=== PATIENT | male | born 1945 ===

== ENCOUNTER 2022-09-20 01:24 | Inpatient (IN) | payer OTHER ==
[~2022-09-20] VITALS: Ht 172.7 cm; Wt 78.2 kg
[2022-09-20 01:51] LABS: Hematocrit 28.7 % (37.0-53.0); Hemoglobin 9.5 g/dL (13.5-17.5); International Normalized Ratio 1.41; Mean Corpuscular HGB 29.4 pg (26.0-34.0); Mean Corpuscular HGB Conc 33.1 g/dL (31.5-36.5); Mean Corpuscular Volume 89 fL (80-100); NRBC ABSOLUTE 0.13 K/mm3 (0.00-0.02); NRBC Auto 0.7 /100 WBC (0.0-0.2); Platelet Count 104 K/mm3 (150-400); Prothrombin Time Results 14.5 Sec (9.7-11.5); RDW Coefficient Variation 16.6 % (11.7-14.2); Red Blood Cell Count 3.23 M/mm3 (4.30-5.90); White Blood Cell Count 19.23 K/mm3 (4.00-11.30)
[2022-09-20 01:54] LABS: Mean Platelet Volume 13.5 fL (9.1-12.4)
[2022-09-20 02:29] LABS: BAND PERCENT MAN 2 % (0-8); BASOPHILS PERCENT MAN 0 % (0-2); EOSINOPHILS PERCENT MAN 0 % (0-6); LYMPHOCYTES ABSOLUTE MAN 0.76 K/mm3 (0.84-5.20); LYMPHOCYTES PERCENT MAN 4 % (21-46); METAMYELOCYTE ABSOLUTE MAN 0.57 K/mm3 (0.00-0.00); METAMYELOCYTE PERCENT MAN 3 % (0-0); MONOCYTES ABSOLUTE MAN 0.38 K/mm3 (0.16-1.47); MONOCYTES PERCENT MAN 2 % (4-13); MYELOCYTE ABSOLUTE MAN 0.38 K/mm3 (0.00-0.00); MYELOCYTE PERCENT MAN 2 % (0-0); NEUTROPHILS ABSOLUTE MAN 17.11 K/mm3 (1.96-9.15); SEG NEUTROPHILS PERCENT MAN 87 % (41-73); TOTAL CELLS COUNTED 100
[2022-09-20 02:49] LABS: PCO2 Arterial 27.1 mmHg (35-45)
[2022-09-20 02:51] LABS: pH Blood Arterial 6.93 (7.35-7.45)
[2022-09-20 03:14] LABS: Ethanol (Alcohol), Blood, Med <3 mg/dL
[2022-09-20 04:06] LABS: Alanine Aminotransfer (ALT/SGP 44 U/L (12-78); Albumin, Blood 2.7 g/dL (3.4-5.0); Albumin/Globulin Ratio 0.8 (0.8-1.8); Alk Phos 82 U/L (50-136); Anion Gap 17 mmol/L (6-16); Aspartate Aminotrans (AST/SGOT 131 U/L (12-37); Bilirubin, Total 0.6 mg/dL (0.1-1.0); Blood Urea Nitrogen 179 mg/dL (8-24); Bun/Creatinine Ratio 14.6 (12.0-20.0); CO2, Blood 8 mmol/L (21-32); CPK Creatine Kinase 2646 U/L (39-308); Calcium, Blood 5.4 mg/dL (8.5-10.1); Chloride, Blood 108 mmol/L (98-108); Globulin, Blood 3.3 g/dL (2.2-4.0); Glomerular Filtration Rate 4 (60-); Glucose, Blood 150 mg/dL (70-99); Potassium, Blood 5.8 mmol/L (3.5-5.5); Sodium, Blood 133 mmol/L (136-145)
[2022-09-20 06:45] LABS: Source, Urine Clean Catch
[2022-09-20 06:53] LABS: Creatine Kinase MB 57.9 ng/mL (0.0-3.6); Creatine Kinase MB Index 2.2 (0.0-4.0)
[2022-09-20 07:15] LABS: Appearance, Urine Hazy (Clear); Bilirubin, Urine Neg (Neg); Blood, Urine 5+ (Neg); Color, Urine Amber (P-Yellow); Glucose Qualitative, Urine Neg (Neg); Ketones, Urine Neg (Neg); Leukocyte Esterase, Urine Neg (Neg); Nitrite, Urine Neg (Neg); Protein, Urine 4+ (Neg); Urobilinogen, Urine NORM (Normal)
[2022-09-20 07:50] LABS: Red Blood Cells, Urine 50-100 /hpf (0-2)
[2022-09-20 07:51] LABS: Bacteria Many /hpf; Squamous Epithelial Cells Rare /hpf (Few)
[2022-09-20 07:52] LABS: Transitional Epithelial Cells Rare /hpf (0-Rare)
[2022-09-20 08:07] LABS: Base Excess Venous -25.8 mmol/L; PCO2 Venous 34.4 mmHg (38-42); pH Blood Venous 6.91 (7.34-7.37)
--- NOTE | 2022-09-20 09:30 | NUR ---
Patient arrived from ER and was 4 person slide transfer. He was on oxymizer 10L and sats 88-92%. He has audible coarse breathing. Dr Knight by to see patient, and nephrology saw in ER with new orders. Dr Millan consulted for center punch operator and possible Dialysis cath. Patient shortly after placed on BIPAP 10/5 75% and sats >90%. Patient arrived with Chilel draining to gravity and scant amount yellow urine. Patient has reddened yeast around belly button and buttock and groun. Cleaned grzegorz area and rectal area.
[2022-09-20 09:50] LABS: Percent Saturation 42.6 % (20.0-50.0)
[2022-09-20 10:11] LABS: Calcium, Blood 5.2 mg/dL (8.5-10.1); Phosphorus, Blood 17.3 mg/dL (2.5-4.9); Potassium, Blood 5.6 mmol/L (3.5-5.5)
[2022-09-20 11:58] LABS: Albumin, Blood 2.3 g/dL (3.4-5.0); Anion Gap 15 mmol/L (6-16); Blood Urea Nitrogen 223 mg/dL (8-24); Bun/Creatinine Ratio 19.4 (12.0-20.0); CO2, Blood 10 mmol/L (21-32); Calcium, Blood 5.2 mg/dL (8.5-10.1); Chloride, Blood 113 mmol/L (98-108); Glomerular Filtration Rate 4 (60-); Glucose, Blood 176 mg/dL (70-99); Phosphorus, Blood 14.8 mg/dL (2.5-4.9); Potassium, Blood 5.4 mmol/L (3.5-5.5); Sodium, Blood 138 mmol/L (136-145)
--- NOTE | 2022-09-20 12:00 | NUR ---
Dr Millan met with both brothers and had conversation about code status change and they requested and consent for trialysis cath for dialysis and the y argreed to make full code and see how he does short term. Patient [id number] and sedated around 1120, 8.0 ET and 26cm at teeth with vent settings of 17/500/50/5 and sats >90%. dr Millan placed trialysis cath in right groin for dialysis today. Patient remains on bicarb at 150ml/hr and Propofol at 45 mcg/kg/min and is mostly sedated and responds to pain.
[2022-09-20 13:06] LABS: PCO2 Arterial 30.4 mmHg (35-45); PO2 Arterial 95.5 mmHg (80-100)
[2022-09-20 13:08] LABS: pH Blood Arterial 7.05 (7.35-7.45)
--- NOTE | 2022-09-20 14:00 | NUR ---
Patient is starting dialysis. He has been doing well since intubation and sedation. No changes to vent settings since last note, 17/500/50/5 sats >90%. Pressures stating WNL and MAP>65. Family has gone for the day.
--- NOTE | 2022-09-20 16:02 | NUR ---
No significant changes with patient. He contionues with dialysis currently. Will assess after dialysis done. VSS
--- NOTE | 2022-09-20 17:44 | NUR ---
Pt is currently intubated after arriving in the ED with altered mental status, poor coordination of body movements. Pt unable to speak or answer questions in the ED, and was then intubated in ICU when family changed code status from DNR to FULL CODE, and plan for dialysis for acute renal failure. Pt has a son, but pt's 2 brothers are stepping in for him, as he is unable to leave his apartment due to mental health issues at this time. Met with the brothers, and we discussed pt's lack of self care related to years of diabetes, but they want to be sure they aren't making "rash" decisions. Palliative to meet with brothers again tomorrow to review pt's current status.
--- NOTE | 2022-09-20 18:00 | NUR ---
Dialysis done at 1700 and pulled 1L off. Dr montoya by and spoke with dialysis nurse and will rerun tomorrow. He remains intubated and sedated with vent settings of 17/500/40/5 and sats 98%. Chilel had 30 ml out yellow urine even post 80 mg lasix this am. OG in place and had 150 ml dark out put. Trialysis cath right groin C/D/I. 20 ga IV in right lower FA SL./ Pulled IV in RAC. He has had bilateral soft wrist restraints since 1130.
[2022-09-21 04:05] LABS: BASOPHILS PERCENT AUTO 0 % (0-2); EOSINOPHILS PERCENT AUTO 0 % (0-6); Hematocrit 19.7 % (37.0-53.0); Hemoglobin 6.7 g/dL (13.5-17.5); IMMATURE GRAN ABSOLUTE AUTO 0.34 K/mm3 (0.00-0.10); IMMATURE GRAN PERCENT AUTO 5 % (0-1); LYMPHOCYTES ABSOLUTE AUTO 0.08 K/mm3 (0.84-5.20); LYMPHOCYTES PERCENT AUTO 1 % (21-46); MONOCYTES ABSOLUTE AUTO 0.15 K/mm3 (0.16-1.47); MONOCYTES PERCENT AUTO 2 % (4-13); Mean Corpuscular HGB 28.8 pg (26.0-34.0); Mean Corpuscular Volume 85 fL (80-100); Mean Platelet Volume 11.5 fL (9.1-12.4); NEUTROPHILS ABSOLUTE AUTO 6.46 K/mm3 (1.96-9.15); NEUTROPHILS PERCENT AUTO 92 % (41-73); RDW Coefficient Variation 15.9 % (11.7-14.2); RDW Standard Deviation 48.9 fL (35.1-46.3); Red Blood Cell Count 2.33 M/mm3 (4.30-5.90); White Blood Cell Count 7.03 K/mm3 (4.00-11.30)
[2022-09-21 05:02] LABS: Magnesium, Blood 1.9 mg/dL (1.6-2.4)
[2022-09-21 05:19] LABS: Platelet Count 39 K/mm3 (150-400)
[2022-09-21 05:42] LABS: Anion Gap 19 mmol/L (6-16); Blood Urea Nitrogen 116 mg/dL (8-24); Bun/Creatinine Ratio 13.7 (12.0-20.0); CO2, Blood 17 mmol/L (21-32); Calcium, Blood 5.5 mg/dL (8.5-10.1); Chloride, Blood 104 mmol/L (98-108); Creatinine, Blood 8.49 mg/dL (0.60-1.20); Glomerular Filtration Rate 6 (60-); Glucose, Blood 102 mg/dL (70-99); Phosphorus, Blood 9.3 mg/dL (2.5-4.9); Potassium, Blood 3.8 mmol/L (3.5-5.5); Sodium, Blood 140 mmol/L (136-145)
--- NOTE | 2022-09-21 06:39 | NUR ---
Shift summary: Neuro: Pt is sedated with propofol at 40mcg/kg/min and isn't compliant with ventilator when sedation decreased at first. Pt Sofay spontanously. Cardiac: Afib. HR varied from low 100's at the beginning of the night and is now decreased to mid-70s. Edema to BLE 2+. Resp: Lung sounds - crackles. Intubated - size 8.0 ETT, 26 at the [facility]. AC/VC 17/500/5/30% GI/: OGT to LIWS with 100ml out of blood tinged/bile colored liquid. Chilel draining to gravity with 0 ml urine output. 1 dark black BM overnight. IV - Right fem trialysis cath. 2 right FA IV's. D5 infusing at 50ml/hr. Blood glucose checks Q6 hours Plan for dialysis today
--- NOTE | 2022-09-21 07:10 | NUR ---
Received report from Breanne PHIPPS. Patient is intubated and sedated with 8.0 ET and 26cm at teeth with vent settings AC/VC 17/500/30/5 and sats >90%. He has Trialysis cath in right groin and will have dialysis today with PRBC. He has x2 20ga lower RFA infusinf D% at 50 ml/hr, Propofol at 40 mcg/kg/min. he has 16fr temp cabrera draining to gravity scat amounts of yellow urine. He responds to painful stimuli. He has yeast areas that cream has been applied at grzegorz rectal area and belly button. He has bilateral soft writ restraints. Oral care and repositioned this am already.
--- NOTE | 2022-09-21 09:30 | NUR ---
Patient started dialysis around 0900. NO changes to vent setting or gtt's. He is getting 1 PRBC and albumin during dialysis for 6.7 hgb. We are also going to start tube feeds and stop D5 shortly after. AM meds given. Family called for update. He remains in soft bilateral wrist restraints.He was braying down in the 40's and spoke with Dr Millan, dialysis changed settings and he back in kaylynn 70-80's changing to SR to a-vfib and back.
[2022-09-21 10:11] LABS: HBSAG SCREEN Negative (Negative); HCV ANTIBODY <0.1 (0.0-0.9)
--- NOTE | 2022-09-21 11:45 | NUR ---
Patient doing dialysis and tolerating well now that they have reduce fluid pull. Ordered PRBC and Albumin. No changes to vent or gtt's
--- NOTE | 2022-09-21 13:55 | NUR ---
Patient received bath and linen change. Talked with Dr Millan about blood in urinary cath and around meatus and have stopped heparin. He continues to have liquied maroon stool . Starting on Vital High Protien at 25 with goal of 45 ml/hr and 3o ml water flushes Q4. Dialysis went well and had 1500 ml off.
--- NOTE | 2022-09-21 16:00 | NUR ---
No significant changes with patient. He remains intubated and sedated. No changes to vent or gtt's. He has blood tinged thick white ET secretions. He withdrawls from painful stimuli. Patient tolerating TF and flushes. repostioned and boosted in bed
[2022-09-21 16:12] LABS: Hematocrit 22.4 % (37.0-53.0); Hemoglobin 7.9 g/dL (13.5-17.5)
--- NOTE | 2022-09-21 18:07 | NUR ---
Patient remains intubated and sedated with 8.0 ET and 26cm at teeth and settings of 17/500/3-0/5 and sats >90%. He has 16Fr cabrera draining to gravity morgan red urine 100 ml for shift. He had dialysis today with minimal complications and had 1.5L removed. He has x2 20ga IV's in RFA and Trialysis cath right groin, and infusing Propofol at 40 mcg/kg/min, NS TKO. We started Vital High Protein TF at 25ml/hr and 30 ml water flushes Q4. He continues to have maroon liquid stool and and they stopped heparin this shift. VSS
--- NOTE | 2022-09-22 02:20 | NUR ---
TF INCREASED TO 35ML/HR
[2022-09-22 03:58] LABS: PCO2 Arterial 30.1 mmHg (35-45); PO2 Arterial 65.3 mmHg (80-100); pH Blood Arterial 7.36 (7.35-7.45)
[2022-09-22 04:03] LABS: BASOPHILS PERCENT AUTO 0 % (0-2); EOSINOPHILS PERCENT AUTO 0 % (0-6); Hematocrit 21.1 % (37.0-53.0); Hemoglobin 7.4 g/dL (13.5-17.5); IMMATURE GRAN ABSOLUTE AUTO 0.15 K/mm3 (0.00-0.10); IMMATURE GRAN PERCENT AUTO 3 % (0-1); LYMPHOCYTES ABSOLUTE AUTO 0.08 K/mm3 (0.84-5.20); LYMPHOCYTES PERCENT AUTO 2 % (21-46); MONOCYTES ABSOLUTE AUTO 0.07 K/mm3 (0.16-1.47); MONOCYTES PERCENT AUTO 1 % (4-13); Mean Corpuscular HGB 29.7 pg (26.0-34.0); Mean Corpuscular HGB Conc 35.1 g/dL (31.5-36.5); Mean Corpuscular Volume 85 fL (80-100); Mean Platelet Volume 11.5 fL (9.1-12.4); NEUTROPHILS ABSOLUTE AUTO 5.11 K/mm3 (1.96-9.15); NEUTROPHILS PERCENT AUTO 94 % (41-73); RDW Coefficient Variation 15.9 % (11.7-14.2); RDW Standard Deviation 49.6 fL (35.1-46.3); Red Blood Cell Count 2.49 M/mm3 (4.30-5.90); White Blood Cell Count 5.41 K/mm3 (4.00-11.30)
[2022-09-22 04:21] LABS: Magnesium, Blood 1.6 mg/dL (1.6-2.4)
[2022-09-22 04:43] LABS: Platelet Count 29 K/mm3 (150-400)
[2022-09-22 04:45] LABS: Albumin, Blood 2.2 g/dL (3.4-5.0); Anion Gap 14 mmol/L (6-16); Blood Urea Nitrogen 65 mg/dL (8-24); Bun/Creatinine Ratio 11.8 (12.0-20.0); CO2, Blood 18 mmol/L (21-32); Calcium, Blood 6.4 mg/dL (8.5-10.1); Chloride, Blood 100 mmol/L (98-108); Creatinine, Blood 5.53 mg/dL (0.60-1.20); Glomerular Filtration Rate 10 (60-); Glucose, Blood 193 mg/dL (70-99); Potassium, Blood 3.1 mmol/L (3.5-5.5); Sodium, Blood 132 mmol/L (136-145)
[2022-09-22 04:56] LABS: Phosphorus, Blood 4.8 mg/dL (2.5-4.9)
--- NOTE | 2022-09-22 06:10 | NUR ---
SHIFT SUMMARY: Neuro: Pt is sedated with propofol at 50mcg/kg/min and isn't compliant with ventilator when sedation is decreased. Pt Sofya spontanously, moves head side to side. Cardiac: Afib. HR varied from low 70-90's. BLE edema 2-3+. Resp: Lung sounds - crackles. Intubated - size 8.0 ETT, 26 at the gums. AC/VC 17/500/5/40% Bright red secretions from inline suction. GI/: OGT TF currently at 35ml/hr. Increase at 10am for a goal of 45ml/hr. Chilel draining to gravity with 0 ml urine output. 1 dark loose black BM at beginning of shift IV - Right fem trialysis cath. 2 right FA IV's. Blood glucose checks [id number] Plan for dialysis again today
--- NOTE | 2022-09-22 08:00 | NUR ---
Assumed care of pt at 0700. Sedated with propofol at 50 mcg/kg/min. Cough and gag present. 8.0 cm ETT at expected location of 26 cm at gums. Vent settings ACVC 17/500/5/40%. SpO2 90% or greater. HR 80s. BP stable.
--- NOTE | 2022-09-22 13:59 | NUR ---
Pt's brothers Jim and Franco have been in to see pt. Update provided. Dialysis treatment complete.
--- NOTE | 2022-09-22 18:09 | NUR ---
SUMMARY Neuro: Sedated with propofol at 50 mcg/kg/min. Becomes agitated, coughs more, does not follow commands with absence of sedation. Cough and gag intact. Musc: Total care for all ADLs. Repositioned Q2H. Oral care Q4H. In bilat wrist restraints to prevent self extubation. Cardiac: Afib, rate 115-125 following dialysis. BP stable. GI: VHP at goal rate. No BM this shift. Seems to be tolerating TF well. : Good urine output from cabrera. Skin: Unchanged from initial assessment.
[2022-09-22 21:50] LABS: Source, Urine Foley catheter
[2022-09-22 22:14] LABS: Appearance, Urine Hazy (Clear); Bilirubin, Urine Neg (Neg); Blood, Urine 5+ (Neg); Color, Urine Brown (P-Yellow); Glucose Qualitative, Urine 1+ (Neg); Ketones, Urine 1+ (Neg); Leukocyte Esterase, Urine 2+ (Neg); Nitrite, Urine Pos (Neg); Protein, Urine 4+ (Neg); Specific Gravity, Urine 1.015 (1.003-1.022); Urobilinogen, Urine NORM (Normal)
[2022-09-22 22:39] LABS: Bacteria Many /hpf; Red Blood Cells, Urine TNTC /hpf (0-2); Squamous Epithelial Cells Few /hpf (Few)
[2022-09-23 04:24] LABS: Hematocrit 20.7 % (37.0-53.0); Hemoglobin 7.2 g/dL (13.5-17.5); Mean Corpuscular HGB 29.1 pg (26.0-34.0); Mean Corpuscular HGB Conc 34.8 g/dL (31.5-36.5); Mean Corpuscular Volume 84 fL (80-100); Mean Platelet Volume 9.9 fL (9.1-12.4); RDW Coefficient Variation 15.7 % (11.7-14.2); RDW Standard Deviation 48.1 fL (35.1-46.3); Red Blood Cell Count 2.47 M/mm3 (4.30-5.90); White Blood Cell Count 4.05 K/mm3 (4.00-11.30)
[2022-09-23 04:37] LABS: Platelet Count 23 K/mm3 (150-400)
[2022-09-23 04:40] LABS: PCO2 Arterial 39.7 mmHg (35-45); pH Blood Arterial 7.47 (7.35-7.45)
[2022-09-23 04:41] LABS: Albumin, Blood 2.4 g/dL (3.4-5.0); Bilirubin, Total 0.6 mg/dL (0.1-1.0); Bun/Creatinine Ratio 11.4 (12.0-20.0); Calcium, Blood 6.9 mg/dL (8.5-10.1); Creatinine, Blood 3.5 mg/dL (0.60-1.20); Globulin, Blood 2.5 g/dL (2.2-4.0); Magnesium, Blood 1.6 mg/dL (1.6-2.4); Phosphorus, Blood 1.9 mg/dL (2.5-4.9); Total Protein, Blood 4.9 g/dL (6.4-8.2)
--- NOTE | 2022-09-23 05:04 | NUR ---
SPOKE WITH DR. BENITES ABOUT LAB RESULTS THIS MORNING. K-3.0, CA-6.9, PHOS-1.9, MAG 1.6. Cr 3.50 ORDERS RECEIVED TO REPLACE K AND CA- SEE EMAR. NO PLANS FOR DIALYSIS TODAY.
[2022-09-23 05:39] LABS: BAND PERCENT MAN 7 % (0-8); BASOPHILS PERCENT MAN 0 % (0-2); EOSINOPHILS PERCENT MAN 0 % (0-6); METAMYELOCYTE ABSOLUTE MAN 0.08 K/mm3 (0.00-0.00); METAMYELOCYTE PERCENT MAN 2 % (0-0); MONOCYTES PERCENT MAN 0 % (4-13); NEUTROPHILS ABSOLUTE MAN 3.96 K/mm3 (1.96-9.15); SEG NEUTROPHILS PERCENT MAN 91 % (41-73); TOTAL CELLS COUNTED 100
--- NOTE | 2022-09-23 05:43 | NUR ---
Shift summary: Neuro: Pt is sedated with propofol at 50mcg/kg/min. Paused sedation at beginning of the shift and he was able to open his eyes to command, but never followed any other commands. Cardiac: Afib. HR low 100's. BP soft but MAP >65. BLE edema 2-3+. T-max 100.1 Resp: Lung sounds - crackles. Intubated - size 8.0 ETT, 26 at the [facility]. AC/VC 17/500/5/45% GI/: OGT TF currently at 45ml/hr with 2ml residuals. Chilel draining to gravity with 60 ml urine output at the beginning of shift, 0ml output since then. 2 loose black BMs at beginning of shift IV - Right fem trialysis cath. 1 right FA IV. Blood glucose checks [id number] No plan for dialysis today with lab results improving
--- NOTE | 2022-09-23 07:05 | NUR ---
Assumed care of pt at 0700. Report received from Breanne PHIPPS. Pt sedated with 40 mcg/kg/min propofol. Cough, gag, corneal reflexes intact. Withdraws from pain. 8.0 cm ETT at expected location of 26 cm at gums. Vent settings ACVC 15/500/5/40%. SpO2 100%. EtCO2 27. IV calcium and potassium infusing. Dr Morel in to see patient. Plan to recheck electrolytes this afternoon.
[2022-09-23 15:51] LABS: Bun/Creatinine Ratio 11.7 (12.0-20.0); Calcium, Blood 7.4 mg/dL (8.5-10.1); Creatinine, Blood 3.94 mg/dL (0.60-1.20); Potassium, Blood 3.7 mmol/L (3.5-5.5)
--- NOTE | 2022-09-23 16:19 | NUR ---
CARE SUMMARY Neuro: Pt has been off sedation since 1029. Cough, gag, and corneal reflexes present. Pt had positive babinski. Pupils equal, responsive to light. No movement noted to arms. Pt chews on suction swab with oral care. Musc: total care for all ADLs. Resp: Vent is on PS 10/5 and 45% FiO2. RR 40, Tidal volumes 350-400. Dr Brownlee aware. Scant secretions through ETT. Cardiac: Cardizem drip started per Dr Brownlee. Currently 10 mg/hr. Pt responsed well to prescribed bolus before starting drip. GI: TF and flush per orders. 2 liquid brown BMs this shift. Skin: Photographs obtained of coccyx, as there were none in chart Psych: Updates given to brothers Jim and Franco.
--- NOTE | 2022-09-23 16:37 | NUR ---
Assumed care for pt at 1600 from Kristan PHIPPS. Pt on Diltiazem gtt @ 10 mg/hr, remains off Propofol gtt for sedatiomn vacation. Remains on Spontaneous Pressure Support seeting for the vent. He did not receive dialysis today. Trialysis catheter in R groin and peripheral IV right wrist.
[2022-09-24 03:51] LABS: Hemoglobin 7.7 g/dL (13.5-17.5); Mean Corpuscular HGB 28.6 pg (26.0-34.0); Mean Corpuscular HGB Conc 33.5 g/dL (31.5-36.5); Mean Corpuscular Volume 86 fL (80-100); Mean Platelet Volume 12.6 fL (9.1-12.4); RDW Coefficient Variation 15.7 % (11.7-14.2); RDW Standard Deviation 48.6 fL (35.1-46.3); Red Blood Cell Count 2.69 M/mm3 (4.30-5.90); White Blood Cell Count 6.58 K/mm3 (4.00-11.30)
[2022-09-24 04:10] LABS: Albumin, Blood 2.3 g/dL (3.4-5.0); Anion Gap 13 mmol/L (6-16); Blood Urea Nitrogen 58 mg/dL (8-24); Bun/Creatinine Ratio 13.4 (12.0-20.0); CO2, Blood 24 mmol/L (21-32); Calcium, Blood 6.9 mg/dL (8.5-10.1); Chloride, Blood 100 mmol/L (98-108); Creatinine, Blood 4.33 mg/dL (0.60-1.20); Glomerular Filtration Rate 14 (60-); Glucose, Blood 207 mg/dL (70-99); Magnesium, Blood 1.6 mg/dL (1.6-2.4); Phosphorus, Blood 2.7 mg/dL (2.5-4.9); Potassium, Blood 4.2 mmol/L (3.5-5.5); Sodium, Blood 137 mmol/L (136-145)
[2022-09-24 04:16] LABS: Platelet Count 28 K/mm3 (150-400)
[2022-09-24 05:53] LABS: BAND PERCENT MAN 12 % (0-8); BASOPHILS PERCENT MAN 0 % (0-2); EOSINOPHILS PERCENT MAN 0 % (0-6); LYMPHOCYTES ABSOLUTE MAN 0.06 K/mm3 (0.84-5.20); LYMPHOCYTES PERCENT MAN 1 % (21-46); MONOCYTES ABSOLUTE MAN 0.06 K/mm3 (0.16-1.47); MONOCYTES PERCENT MAN 1 % (4-13); NEUTROPHILS ABSOLUTE MAN 6.44 K/mm3 (1.96-9.15); SEG NEUTROPHILS PERCENT MAN 86 % (41-73); TOTAL CELLS COUNTED 100
--- NOTE | 2022-09-24 06:12 | NUR ---
PATIENT OPENING EYES TO VOICE BUT NOT FOLLOWING COMMANDS. MOVES EXTREMITIES X4. PROPOFOL REMAINS OFF BUT FREQUENT PRN FENTANYL DOSES GIVEN TO KEEP PATIENT COMFORTABLE. DILTIAZEM TURNED OFF OVERNIGHT, PATIENT REMAINS IN AFIB. BP STABLE. VENT PS 12/8 50%. OGT IN PLACE WITH CONTINUOUS TUBE FEEDS. MADRIGAL IN PLACE IN PATENT, ONLY 10 ML URINE OUTPUT.
--- NOTE | 2022-09-24 09:21 | NUR ---
ASSUMED PT CARE AT 0715 PT INTUBATED. OFF SEDATION WITH NO PURPOSEFUL MOVEMENTS OR ABILITY TO RESPOND/ FOLLOW COMMANDS. DOESN'T OPEN EYES TO NOXIOUS STIMULI. DOES HAVE A GAG/COUGH REFLEX; PULLS FOOT AWAY WHEN PLANTAR REFLEX IS STIMULIATED. VENT SETTINGS SPONTANEOUS PS 12/8; 45% FIO2 WITH RR 30'S WITH OXYGEN SATURATIONS 98% AND ETCO2 24. PT HAS A TRIALYSIS CATH TO RIGHT FEMORAL SITE; CARDIZEM GTT INTIIATED D/T AFIB WITH HR 130-140'S AT 5MG/HR. SODIUM BICARB STARTED WITH RATE AT 150ML/HR. VHP AT GOAL OF 45ML/HR. TEMP MADRIGAL CATHETER IN PLACE WITH MINIMAL TO NO URINE OUTPUT; DARK TEA COLORED URINE NOTED TO BAG. PT TURNED OFF BOTTOM IT APPEARS THERE IS A DEEP TISSUE INJURY NOTED TO COCCYX AREA. FAMILY AT BEDSIDE WITH DR. YUSUF DISCUSSING PLAN OF CARE. PT IS SCHEDULED FOR DIALYSIS TODAY. WILL CONTINUE TO MONITOR.
--- NOTE | 2022-09-24 17:13 | NUR ---
END OF SHIFT SUMMARY PT REMAINS INTUBATED AND OFF SEDATION. WILL OPEN EYES TO VERBAL STIMULI; HOWEVER, WILL NOT TRACK OR FOLLOW COMMANDS. BILATERAL SOFT WRIST RESTRAINTS REAPPLIED AT 1600 D/T PT BECOMING RESTLESS AND THRASHING IN BED. ABLE TO MOVE EXTREMITIES, BUT DOES NOT APPEAR PURPOSEFUL. VENT SETTINGS REMAIN SPONTANEOUS WITH PS 12/8; FIO2 45%, RR 30'S. SPO2 >90%. PT REMAINS AFIB WITH RATE >100; CARDIZEM GTT REMAINS AT 10MG/HR. CALLED DR. YUSUF REGARDING CHANGING TO LOPRESSOR D/T ELEVATED BP WELL. NEW ORDERS FOR LOPRESSOR 25MG BID. ALSO REQUESTED PT'S MADRIGAL CATHETER TO BE D/C'D PT HAS BEEN ANURIC ALL SHIFT; NEW ORDERS OBTAINED TO D/C MADRIGAL. BICARB GTT CONTINUES AT 75ML/HR. NS TKO. PT RECEIVED DIALYSIS TODAY. FAMILY AT BEDSIDE MOST OF SHIFT AND HAVE BEEN GIVEN UPDATES. WILL CONTINUE TO MONITOR UNTIL REPORT IS HANDED OVER TO ONCOMING RN.
--- NOTE | 2022-09-24 19:00 | NUR ---
ASSUMED CARE ASSUMED CARE OF PATIENT AT 1900. PATIENT LYING IN BED INTUBATED ON SPONTANEOUS 08/18 FIO2 45% WITH SPO2 MID TO HIGH 90'S. PATIENT EXHIBITS OCCASSIONAL SIDE TO SIDE MOVEMENT OF HEAD WITHOUT OPENING EYES. UPON VERBAL AND PHYSICAL STIMULATION, PATIENT OPENS LEFT EYE, BUT DOES NOT OPEN RIGHT EYE. THE RIGHT PUPIL IS NOT RESPONSIVE TO LIGHT, WHEREAS THE LEFT IS SLUGGISH. BOTH PUPILS ARE EQUAL WITHOUT STIMULATION. PATIENT DOES NOT FOLLOW ANY COMMANDS, BUT MOVES ALL FOUR EXTREMITIES INDEPENDENTLY. NOTICEABLE STIFFNESS TO THE RIGHT SIDE WHEN TURNING PATIENT. NO SEDATION INF AT THIS TIME. BICARB GTT @ 75ML/HR AND NS TKO INF. TRIALYSIS CATH TO RIGHT FEMORAL AND 20G PIV TO RT WRIST IN PLACE. ATTENDS IN PLACE. VHP INF @ GR 45ML/HR VIA OGT. REPORT RECEIVED FROM DESIRE [place].
--- NOTE | 2022-09-24 22:25 | NUR ---
FAMILY VISIT FAMILY-VERÓNICA AND JESS-CAME TO BEDSIDE TO VISIT PATIENT BRIEFLY AND REQUEST UPDATE. EXPLAINED THAT THERE HAS NOT BEEN MUCH CHANGE ACCORDING TO REPORT RECEIVED FROM DAYSHIFT NURSE OTHER THAN PATIENT ATTEMPTING TO LIFT HEAD AND TURN HEAD TO VERBAL STIMULI. ALL QUESTIONS ANSWERED AND UNIT PHONE NUMBER PROVIDED. EDUCATED FAMILY ON VISITING HOURS.
[2022-09-25 04:05] LABS: BASOPHILS ABSOLUTE AUTO 0.01 K/mm3 (0.00-0.23); BASOPHILS PERCENT AUTO 0 % (0-2); EOSINOPHILS PERCENT AUTO 0 % (0-6); Hematocrit 21.4 % (37.0-53.0); Hemoglobin 7.1 g/dL (13.5-17.5); IMMATURE GRAN PERCENT AUTO 1 % (0-1); LYMPHOCYTES ABSOLUTE AUTO 0.22 K/mm3 (0.84-5.20); LYMPHOCYTES PERCENT AUTO 3 % (21-46); MONOCYTES PERCENT AUTO 4 % (4-13); Mean Corpuscular HGB 28.3 pg (26.0-34.0); Mean Corpuscular HGB Conc 33.2 g/dL (31.5-36.5); Mean Corpuscular Volume 85 fL (80-100); NEUTROPHILS ABSOLUTE AUTO 7.07 K/mm3 (1.96-9.15); NEUTROPHILS PERCENT AUTO 92 % (41-73); RDW Coefficient Variation 15.4 % (11.7-14.2); RDW Standard Deviation 47.4 fL (35.1-46.3); Red Blood Cell Count 2.51 M/mm3 (4.30-5.90)
[2022-09-25 04:30] LABS: Platelet Count 42 K/mm3 (150-400)
[2022-09-25 04:49] LABS: Albumin, Blood 2.1 g/dL (3.4-5.0); Anion Gap 10 mmol/L (6-16); Blood Urea Nitrogen 59 mg/dL (8-24); Bun/Creatinine Ratio 17.2 (12.0-20.0); CO2, Blood 31 mmol/L (21-32); Chloride, Blood 93 mmol/L (98-108); Creatinine, Blood 3.43 mg/dL (0.60-1.20); Glomerular Filtration Rate 18 (60-); Glucose, Blood 199 mg/dL (70-99); Lactate Dehydrogenase (Ld),Bld 498 U/L (100-240); Magnesium, Blood 1.6 mg/dL (1.6-2.4); Phosphorus, Blood 2.8 mg/dL (2.5-4.9); Potassium, Blood 4.1 mmol/L (3.5-5.5); Sodium, Blood 134 mmol/L (136-145)
--- NOTE | 2022-09-25 05:27 | NUR ---
SHIFT SUMMARY PATIENT REMAINED INTUBATED WITHOUT SEDATION T/O SHIFT. BICARB @ 75ML/HR AND NS TKO INF. TF REMAINS AT GR 45ML/HR. SCANT URINE OUTPUT IN ATTENDS, LARGE LIQUID BM THIS SHIFT-NO STOOL SOFTENERS GIVEN THIS SHIFT. BP REMAINS ELEVATED WITH SBP 130'S-160'S, MAPS 90'S-110'S. VENT SETTINGS REMAIN ON SPONTANEOUS 12/8 FIO2 45% WITH SPO2 HIGH 90'S. PUPILS ARE EQUAL AND REACTIVE BILATERALLY TO LIGHT. PATIENT TENSES WITH CARES AND FIGHTS ORAL CARE/ATTENDS CHANGE. CRITICAL LAB PLT 42-IMPROVING FROM YESTERDAY. NO OTHER CHANGES THIS SHIFT.
--- NOTE | 2022-09-25 09:18 | NUR ---
CARE OF PT ASSUMED AT 0700. PT ON MECH VENT WITHOUT SEDATION. SPONT 12/8 45%. PT OCCASIONALLY OPENS EYES SPONT, DOES NOT TRACK, SHAKES HEAD BACK AND FORTH FREQUENTLY AND WITH ANY CARE. DOES NOT FOLLOW COMMANDS. TUBE FEEDS AT GOAL. BICARB GTT DC'D THIS AM BY NOCT RN PER NEPHROLOGY. HD SCHEDULED FOR TOMORROW.
--- NOTE | 2022-09-25 17:52 | NUR ---
NO CHANGES IN NEURO STATUS THIS SHIFT. 2 BROTHERS STOPPED BY TO SEE PT TODAY. PT INCONTINENT OF 5 LIQUID BM'S THIS SHIFT, RECTAL TUBE PLACED, SCROTUM RED AND EXCORIATED FROM STOOL. MEPILEX CHANGED TO COCCYX; AREA REMAINS PURPLE. FIO2 DOWN TO 35%, PT HAS REMAINED ON SPONT FOR ENTIRE SHIFT. NO SEDATION/FENT HAS BEEN GIVEN THIS SHIFT.
--- NOTE | 2022-09-25 19:00 | NUR ---
ASSUMED CARE ASSUMED CARE OF THIS PATIENT AT 1900. PATIENT LYING IN BED INTUBATED WITHOUT SEDATION. MOVING HEAD SIDE TO SIDE WITH EYES CLOSED. 8.0 ETT IS 26CM @ LIP. VENT SETTINGS SPONTANEOUS 12/8 FIO2 35%. SPO2 MID TO HIGH 90'S. SBP IN 120'S MAPS UNDER 100. VHP INF @ GR 45ML/HR. RECTAL TUBE IN PLACE DRAINING BROWN LIQUID STOOL. BEDSIDE REPORT COMPLETED WITH DESIRE ABRAMS
[2022-09-26 03:51] LABS: BASOPHILS ABSOLUTE AUTO 0.01 K/mm3 (0.00-0.23); BASOPHILS PERCENT AUTO 0 % (0-2); EOSINOPHILS ABSOLUTE AUTO 0.01 K/mm3 (0.00-0.68); EOSINOPHILS PERCENT AUTO 0 % (0-6); Hemoglobin 6.9 g/dL (13.5-17.5); IMMATURE GRAN ABSOLUTE AUTO 0.09 K/mm3 (0.00-0.10); IMMATURE GRAN PERCENT AUTO 1 % (0-1); LYMPHOCYTES PERCENT AUTO 5 % (21-46); MONOCYTES ABSOLUTE AUTO 0.44 K/mm3 (0.16-1.47); MONOCYTES PERCENT AUTO 5 % (4-13); Mean Corpuscular HGB 28.4 pg (26.0-34.0); Mean Corpuscular HGB Conc 32.9 g/dL (31.5-36.5); Mean Corpuscular Volume 86 fL (80-100); Mean Platelet Volume 12.7 fL (9.1-12.4); NEUTROPHILS ABSOLUTE AUTO 7.21 K/mm3 (1.96-9.15); NEUTROPHILS PERCENT AUTO 88 % (41-73); RDW Coefficient Variation 14.9 % (11.7-14.2); RDW Standard Deviation 46.8 fL (35.1-46.3); Red Blood Cell Count 2.43 M/mm3 (4.30-5.90); White Blood Cell Count 8.16 K/mm3 (4.00-11.30)
[2022-09-26 04:11] LABS: Platelet Count 49 K/mm3 (150-400)
[2022-09-26 06:25] LABS: Albumin, Blood 2.1 g/dL (3.4-5.0); Anion Gap 11 mmol/L (6-16); Blood Urea Nitrogen 105 mg/dL (8-24); Bun/Creatinine Ratio 22.1 (12.0-20.0); CO2, Blood 30 mmol/L (21-32); Calcium, Blood 6.6 mg/dL (8.5-10.1); Chloride, Blood 92 mmol/L (98-108); Creatinine, Blood 4.76 mg/dL (0.60-1.20); Glomerular Filtration Rate 12 (60-); Glucose, Blood 131 mg/dL (70-99); Phosphorus, Blood 4.9 mg/dL (2.5-4.9); Potassium, Blood 4.8 mmol/L (3.5-5.5); Sodium, Blood 133 mmol/L (136-145)
--- NOTE | 2022-09-26 06:42 | NUR ---
SHIFT SUMMARY PATIENT REMAINED INTUBATED ON SPONTANEOUS, ALTHOUGH PRESSURE AND O2 REQUIREMENTS INCREASED. FINAL SETTINGS 16/8 45% FIO2 WITH SPO2 HIGH 90'S. PATIENT IS BECOMING MORE RESPONSIVE AND ABLE TO FOLLOW SIMPLE COMMANDS. BECOMES RESTLESS IN BED WHEN CARES ARE PROVIDED. NO INSULIN COVERAGE THIS SHIFT. CRITICAL LAB OF PLATELETS 49, BUT IMPROVING. SCANT URINE OUTPUT, UNMEASURABLE. NO OTHER CHANGES DURING THIS SHIFT.
--- NOTE | 2022-09-26 07:40 | NUR ---
ASSUMED CARE: REPORT RECEIVED FROM BRENDA Chandler RN. ASSUMED CARE OF THIS PT APPROX 0700. ON ASSESSMENT, THE PT IS VENTILATED & RESTING QUIETLY. HE APPEARS STARTLED W/ ANY TACTILE OR VERBAL STIMULUS & GRIMACES/ WITHDRAWS QUICKLY. HE HAS FOLLOWED BASIC COMMAND OF SQUEEZING HAND THIS AM BUT HAS DONE SO VERY SLOWLY. LS COARSE, PT ON VENTILATOR W/ SETTINGS: PS 16/, PEEP 8 & 45% FIO2. O2 SATS > 92%. OCCASIONAL MOIST COUGH W/ MOD AMNTS THICK ANG-RED SECRETIONS SUCTIONED THROUGH ETT. MONITOR SHOWS AFIB W/ HR 80-110s, BP STABLE. OGT IN PLACE W/ TUBE FEEDS VHP INFUSING AT 45 ML/HR (GOAL), NO S/SX INTOLERANCE NOTED. PT ANURIC R/T HD. SKIN OVERALL FRAGILE, Q2H REPOSITIONING TO MAINTAIN SKIN INTEGRITY. WILL CONTINUE TO MONITOR & UPDATE NEEDED.
--- NOTE | 2022-09-26 10:00 | NUR ---
DR YUSUF: PROVIDER AT BEDSIDE TO EVAL PT THIS AM. DURING THIS TIME, PT's BROTHER, MARK, HAS BEEN AT BEDSIDE & DR YUSUF HAS UPDATED HIM ON THE PT's CONDITION & POC. THEY HAVE DISCUSSED CODE STATUS & CONTINUED CARE AT LENGTH. MARK HAS DECIDED THAT THE PT WOULD NOT WANT CPR & IS NOW DNR STATUS. PURPLE BAND HUNG ON DOOR & PLACED ON PT's LEFT WRIST, VERIFIED W/ JENNIFER Abdi RN. MARK IS CONSIDERING COMFORT MEASURES IF THE PT's MENTATION DOES NOT CONTINUE TO IMPROVE. NO OTHER CHANGES AT THIS TIME.
--- NOTE | 2022-09-26 17:56 | NUR ---
SHIFT SUMMARY: NO ACUTE CHANGES SINCE PRIOR UPDATES. PT CONTINUES TO STARTLE/ GRIMACE TO ANY SORT OF TACTILE OR VERBAL STIMULATION. OTHERWISE NO PURPOSEFUL MOVEMENT NOTED THIS AFTERNOON. LS DIM IN BASES, PT ON RA W/ O2 SATS > 92%. OCCASIONAL PRODUCTIVE COUGH W/ THICK ANG SPUTUM NOTED AROUND TRACH STOMA. MONITOR SHOWS AFIB W/ HR 90-110s, BP STABLE. HTN W/ INCREASED AGITATION. OGT IN PLACE W/ TUBE FEEDS VHP INFUSING AT 45 ML/HR (GOAL). NO S/SX INTOLERANCE NOTED. PT HAVING LOOSE BROWN STS W/ RECTAL TUBE IN PLACE. ANURIA R/T HD. SKIN OVERALL FRAGILE, Q2H REPOSITIONING TO MAINTAIN SKIN INTEGRITY. WILL CONTINUE TO MONITOR & REPORT OFF TO ONCOMING RN.
--- NOTE | 2022-09-26 18:39 | NUR ---
SHIFT SUMMARY: NO ACUTE CHANGES SINCE PRIOR UPDATES. PT CONTINUES TO STARTLE/ GRIMACE TO ANY SORT OF TACTILE OR VERBAL STIMULATION. OTHERWISE NO PURPOSEFUL MOVEMENT NOTED THIS AFTERNOON. LS COARSE T/O, PT ON VENT: PS 14, PEEP 7 & 40% FIO2 W/ O2 SATS > 92%. OCCASIONAL PRODUCTIVE COUGH W/ THICK ANG-RED SPUTUM SUCTIONED THROUGH ETT. MONITOR SHOWS AFIB W/ HR 90-110s, BP STABLE. OGT IN PLACE W/ TUBE FEEDS VHP INFUSING AT 45 ML/HR (GOAL). NO S/SX INTOLERANCE NOTED. PT HAVING LOOSE BROWN STLS W/ RECTAL TUBE IN PLACE. ANURIA R/T HD. SKIN OVERALL FRAGILE, Q2H REPOSITIONING TO MAINTAIN SKIN INTEGRITY. WILL CONTINUE TO MONITOR & REPORT OFF TO ONCOMING RN.
--- NOTE | 2022-09-26 20:48 | NUR ---
ASSUMED CARE PT IS INTUBATED ON SPONTANEOUS 24/03/40%; SPO2 >92%. MAP >65. HR IN THE 120'S THAT HAS NOW SETTLED IN THE 90-100'S. COURSE LUNG SOUNDS. DIFFICULT TO ASCERTAIN WHETHER HE FOLLOWS COMMANDS. APPEARS TO ATTEMPT TO OPEN EYES WHEN ASKED TO, BUT DOES NOT SQUEEZE HANDS OR NOD HEAD WHEN ASKED TO (HANDS CLENCHED FOR MOST OF ASSESSMENT). PT IS VERY IRRITABLE AND WILL THRASH WITH ANY KIND OF PHYSICAL CONTACT. TUBE FEED @ GOAL RATE OF 45MLS/HR. RECTAL TUBE PATENT AND DRAINING TO GRAVITY.
[2022-09-27 04:07] LABS: BASOPHILS ABSOLUTE AUTO 0.01 K/mm3 (0.00-0.23); BASOPHILS PERCENT AUTO 0 % (0-2); EOSINOPHILS PERCENT AUTO 0 % (0-6); Hematocrit 22.3 % (37.0-53.0); Hemoglobin 7.4 g/dL (13.5-17.5); IMMATURE GRAN ABSOLUTE AUTO 0.09 K/mm3 (0.00-0.10); IMMATURE GRAN PERCENT AUTO 1 % (0-1); LYMPHOCYTES ABSOLUTE AUTO 0.23 K/mm3 (0.84-5.20); LYMPHOCYTES PERCENT AUTO 3 % (21-46); MONOCYTES ABSOLUTE AUTO 0.34 K/mm3 (0.16-1.47); MONOCYTES PERCENT AUTO 5 % (4-13); Mean Corpuscular HGB 28.9 pg (26.0-34.0); Mean Corpuscular HGB Conc 33.2 g/dL (31.5-36.5); Mean Corpuscular Volume 87 fL (80-100); NEUTROPHILS ABSOLUTE AUTO 6.46 K/mm3 (1.96-9.15); NEUTROPHILS PERCENT AUTO 91 % (41-73); Platelet Count 52 K/mm3 (150-400); RDW Coefficient Variation 14.6 % (11.7-14.2); RDW Standard Deviation 46.5 fL (35.1-46.3); Red Blood Cell Count 2.56 M/mm3 (4.30-5.90); White Blood Cell Count 7.13 K/mm3 (4.00-11.30)
[2022-09-27 04:18] LABS: Mean Platelet Volume 13.7 fL (9.1-12.4)
[2022-09-27 04:22] LABS: Albumin, Blood 1.9 g/dL (3.4-5.0); Anion Gap 11 mmol/L (6-16); Blood Urea Nitrogen 95 mg/dL (8-24); Bun/Creatinine Ratio 23.4 (12.0-20.0); CO2, Blood 28 mmol/L (21-32); Calcium, Blood 6.6 mg/dL (8.5-10.1); Chloride, Blood 95 mmol/L (98-108); Creatinine, Blood 4.06 mg/dL (0.60-1.20); Glomerular Filtration Rate 15 (60-); Glucose, Blood 133 mg/dL (70-99); Phosphorus, Blood 5.5 mg/dL (2.5-4.9); Potassium, Blood 4.5 mmol/L (3.5-5.5); Sodium, Blood 134 mmol/L (136-145)
--- NOTE | 2022-09-27 04:57 | NUR ---
SHIFT SUMMARY PT IS INTUBATED W/ SETTINGS AT 14/7/40%; SPO2 >92%, MAP >65. FEW EPISODES OF A SOFT BLOOD PRESSURE, BUT MAY BE D/T PT POSITIONING/MOVING ARMS. NO ACUTE EVENTS SINCE ASSUMED CARE NOTE. RECTAL TUBE PATENT AND DRAINING TO GRAVITY.
--- NOTE | 2022-09-27 07:40 | NUR ---
ASSUMED CARE: REPORT RECEIVED FROM NAHID Vega & BRENDA Corley, Uli. ASSUMED CARE OF THIS PT AT APPROX 0700. ON ASSESSMENT, THE PT IS RESTING QUIETLY WHEN NOT STIMULATED. HE GRIMACES/ WITHDRAWS & THRASHES W/ ANY VERBAL OR TACILE STIMULUS & IS NOT REDIRECTABLE AT THOSE TIMES. DIFFICULT TO ASCERTAIN IF FOLLOWING DIRECTIONS THERE IS NO CONSISTENCY & ACTIONS MAY BE REFLEXIVE IN NATURE. LS COARSE T/O, PT ON VENT W/ SETTINGS: PS 14, PEEP 7 & 40% FIO2, O2 SATS > 92%. MONITOR SHOWS AFIB W/ HR 90-110s, INCREASED W/ AGITATION. BP STABLE. OGT IN PLACE W/ TUBE FEEDS VHP INFUSING AT 45 ML/HR (GOAL) W/ NO S/SX INTOLERANCE. RECTAL TUBE DRAINING BROWN LIQUID STLS. PT ANURIC R/T HD. SKIN CONDITION OVERALL FRAGILE, Q2H REPOSITIONING TO MAINTAIN SKIN INTEGRITY. WILL CONTINUE TO MONITOR & UPDATE NEEDED.
--- NOTE | 2022-09-27 09:45 | NUR ---
DR SMALLWOOD / FAMILY UPDATE: THIS RN HAS REQUESTED THAT DR SMALLWOOD SPEAK W/ PT's BROTHER, MARK, WHO IS AT BEDSIDE THIS AM. AFTER SPEAKING W/ FAMILY, MARK HAS NOTIFIED THIS RN THAT THEY WOULD LIKE TO WITHDRAW CARE FOR THIS PT AT APPROX [address] SMALLWOOD & LIGIA Vega, PALLIATIVE CARE RN, AT BEDSIDE TO DISCUSS THIS W/ MARK. MARK STS THAT THE PT WOULD NOT WANT THESE MEASURES & VERBALIZES UNDERSTANDING THAT THE PT MAY NOT IMMEDIATELY UPON EXTUBATION. MARK STS THAT SOME FAMILY MAY BE COMING TO VISIT BEFORE NOON. HE HAS NOT CHOSEN A HOME BUT [facility]. LIGIA, RN, HAS PLACED ORDERS FOR COMFORT MEASURES & THE PLAN IS FOR EXTUBATION AT 1200. DR SERRANO HAS ALSO BEEN MADE AWARE OF THIS PLAN. NO OTHER CHANGES AT THIS TIME.
--- NOTE | 2022-09-27 10:33 | NUR ---
Joint visit with Dr Millan, this PC RN, and Rory in Pt's room. Discussed goals of care. Dr Millan reviews plan of care and answers questions. Rory reports Pt would not want to continue with current plan of care and would want to focus on comfort at this time. Educated on comfort care philosophy with V/U made by Rory. Rory would like to implement comfort care measures in 1200 today. He reports this will allow whom ever that wants to see him before withdrawing care. Rory expressses appreciation and reports no other concerns at this time. Placed Comfort Care order, Comfort Care order set, Ativan 1-2mg IV Q 2 Hours PRN, and D/C maintenance medications per V/O from Dr Millan. Plan to implement comfort measures at 1200 per family request. Palliative Care will remain available.
--- NOTE | 2022-09-27 11:35 | NUR ---
"Spiritual Care | Family Request. pt. is intubated and mostly non responsive. Pt. niece is present and is requesting prayer and pastoral care for the Pt. Facilliate a short life review with the niece. Words of comfort, opportunity, and hope are given on behalf of the Pt. and Prayer is given. Niece displayed evidence of being comforted. Niece verbalized gratitude for the spiritual care visit. Pt. extubation is planned for noon."
--- NOTE | 2022-09-27 13:38 | NUR ---
"Spiritual Care | EOL Pt. had passed, and all visitors have departed. No meera had been finalized. This territory sales executive contacted Pts. PABLOK brother by telephone. While the Pt. will be interned at the [employer], the family has chosen [facility] as their home. Reported information to ICU charge nurse Jason."
--- NOTE | 2022-09-27 14:43 | NUR ---
EXTUBATION / COMFORT MEASURES: BILAT SOFT WRIST RESTRAINTS REMOVED AT 1200 & PT TERMINALLY EXTUBATED AT 1203. PT's NIECE AT BEDSIDE DURING THIS TIME. MEDS GIVEN PER EMAR TO PROMOTE PT COMFORT. HE HAS VISIBLY INCREASED WORK OF BREATHING SINCE EXTUBATION & ORAL SECRETIONS CAUSING "RATTLING" WITH BREATHS. THE PT HAS AT 1319, PRONOUNCED BY MACEY Corley & EUGENE Chandler, RNs. NURSING SUP, SHANEKA Burns, NOTIFIED. THE PT's BROTHER, VERÓNICA, IS AT BEDSIDE DURING THIS TIME. MERT Acosta, SPIRITUAL CARE, HAS CONTACTED MARK, THE PT's OTHER BROTHER TO DETERMINE ARRANGEMENTS. [facility] [place] HAS BEEN CONTACTED & HAS TAKEN PT OUT OF ROOM TO HOME AT 1438. HOME TRANSPORTER IS GALILEA TAVERAS. FINAL D/C COMPLETED & ALL PROVIDERS NOTIFIED OF PT EXPIRING.
[2022-09-28 08:10] LABS: ADAMTS13 ACTIVITY 65.6 % (>66.8)
[2022-09-28 19:06] LABS: ANTIMYELOPEROXIDASE (MPO) ABS <0.2 units (0.0-0.9); ANTIPROTEINASE 3 (PR-3) ABS <0.2 units (0.0-0.9); ATYPICAL PANCA <1:20 titer (Neg:<1:20); CYTOPLASMIC (C-ANCA) <1:20 titer (Neg:<1:20); PERINUCLEAR (P-ANCA) <1:20 titer (Neg:<1:20)
== END 2022-09-27 13:19 | DRG 682 ==
LOC: ER 01:24 → ICUW 05:04 → ERHOLD 05:04 → ICUW 05:04
PROVIDERS: Emergency Medicine; Family Medicine; Internal Medicine Critical Care Medicine; Internal Medicine Nephrology; ADMIT Family Medicine
PROC: 3E03329 Introduction of Other Anti-infective into Peripheral Vein, Percutaneous Approach (ICD-10-PCS; principal; 2022-09-20)
PROC: 5A1D70Z Performance of Urinary Filtration, Intermittent, Less than 6 Hours Per Day (ICD-10-PCS; 2022-09-20)
PROC: 0BH18EZ Insertion of Endotracheal Airway into Trachea, Via Natural or Artificial Opening Endoscopic (ICD-10-PCS; 2022-09-20)
PROC: 06HY33Z Insertion of Infusion Device into Lower Vein, Percutaneous Approach (ICD-10-PCS; 2022-09-20)
PROC: 5A1955Z Respiratory Ventilation, Greater than 96 Consecutive Hours (ICD-10-PCS; 2022-09-20)
PROC: 30233N1 Transfusion of Nonautologous Red Blood Cells into Peripheral Vein, Percutaneous Approach (ICD-10-PCS; 2022-09-21)
PROC: 30233N1 Transfusion of Nonautologous Red Blood Cells into Peripheral Vein, Percutaneous Approach (ICD-10-PCS; 2022-09-26)
DX: N17.0 Acute kidney failure with tubular necrosis (principal); A41.9 Sepsis, unspecified organism; G92.8 Other toxic encephalopathy; J96.01 Acute respiratory failure with hypoxia; I21.A1 Myocardial infarction type 2; R65.20 Severe sepsis without septic shock; E87.20 Acidosis, unspecified; I42.0 Dilated cardiomyopathy; Z66 Do not resuscitate; Z51.5 Encounter for palliative care; E87.5 Hyperkalemia; Z78.1 Physical restraint status; D63.1 Anemia in chronic kidney disease; Z91.14 Patient's other noncompliance with medication regimen; E83.51 Hypocalcemia; R94.31 Abnormal electrocardiogram [ECG] [EKG]; D69.6 Thrombocytopenia, unspecified; E11.22 Type 2 diabetes mellitus with diabetic chronic kidney disease; E83.39 Other disorders of phosphorus metabolism; N18.9 Chronic kidney disease, unspecified
CPT/HCPCS: 31500; 36415; 36430; 36556; 36600; 51702; 70450; 70496; 70498; 71045; 76770; 80048; 80053; 80069; 81001; 82306; 82310; 82330; 82550; 82553; 82570; 82728; 82803; 82947; 83516; 83520; 83540; 83550; 83605; 83615; 83735; 83880; 83970; 84100; 84132; 84156; 84300; 84484; 85014; 85018; 85025; 85397; 85610; 86037; 86038; 86317; 86803; 86850; 86900; 86901; 86923; 87040; 87070; 87086; 87205; 87340; 93005; 93010; 93306; 94002; 94003; 94660; 96365-59; 96366-59; 96367-59; 96368; 99285-25; A9270; C1752; C9113; G0480; J0610; J0696; J1644; J1940; J2270; J2704; J3010; J3480; J7030; J7040; J7042; J7050; J7070; P9016; P9047; Q9967